=== PATIENT | female | born 1935 | race Caucasian/White ===

== ENCOUNTER 2017-02-05 12:51 | Day surgery (SDC) | payer MEDICARE, OTHER ==
[~2017-02-05 12:51] MED LIST: 0.9 % SODIUM CHLORIDE 10 ML DISP.SYRIN. IV PRN; ASPI-630 PO; CLOP75TA PO; CLOP75TA57 PO; DIGO125T PO; FLEC100T PO; FLUT10.6 IH; FLUT1DIS IH; FURO-68 PO; GLUC1CAP48 PO; IV RINGERS,LACTATED 1000ML 1,000 ML IV SCH; METO25TA4 PO; MULT-245 PO; POTA20TA12 PO; PROAIR RESPICL90 MCG IH; RIVA20TA2 PO; SIMV5TAB5 PO; TRIA10VI TOP; TRIA15CR TP; VIT1TABL32 PO
--- NOTE | 2017-02-05 13:41 | EKG ---
[facility] [address] [place] [address] Test Date: 2017-02-05 Test Time: 13:42:48 Pat Name: EVERETT WHITING Department: Room: Gender: F [employer] Operator: ISABELL : 1935 Requested By: MIREYA FREIRE Order Number: [id number] Reading MD: Measurements Intervals [place] Rate: 92 P: CT: QRS: 51 QRSD: 106 T: 112 QT: 410 QTc: 513 Interpretive Statements IRREGULAR RHYTHM, NO P-WAVE FOUND VENTRICULAR PREMATURE COMPLEX(ES) LOW LIMB LEAD VOLTAGE ST & T ABNORMALITY, CONSIDER INFERIOR ISCHEMIA OR LEFT VENTRICULAR STRAIN ABNORMAL ECG RI6.01 Compared to ECG 03/04/2015 12:08:20 Atrial fibrillation no longer present T-wave abnormality still present Possible ischemia still present
[2017-02-05 13:57] LABS: CALCIUM 8.7 mg/dL (8.5-10.1); CREATININE 1.1 mg/dL (0.6-1.0); GFR 47.4; POTASSIUM 3.4 mmol/L (3.5-5.1)
[2017-02-05] MEDS ORDERED: PROPOFOL 20 ML IV ONE (14:22)
[2017-02-05] MEDS ORDERED: LIDOCAINE 2% PF Vial for OR 5 ML VIAL. ONE (14:22)
[2017-02-05] MEDS ORDERED: ePHEDrine PF IN SALINE 50 MG/5 ML DISP.SYRIN IV ONE (14:23)
--- NOTE | 2017-02-05 15:03 | EKG ---
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
[2017-02-05 16:20] VITALS: BP 114/47
--- NOTE | 2017-02-05 21:13 | CCR ---
DATE OF SERVICE: 02/05/2017 PROCEDURE DONE: Cardioversion. PERFORMING PHYSICIAN: Mireya Bean M.D. INDICATIONS: Atrial fibrillation. COMPLICATIONS: None. DESCRIPTION OF PROCEDURE: An informed consent was obtained from the patient. Anesthesiology team administered intravenous propofol for general anesthesia. The patient was then administered 200 joules of synchronized biphasic DC current with successful conversion of the patient's rhythm to sinus rhythm. The patient was hemodynamically stable without any neurological deficits at the end of procedure. The patient tolerated the procedure well. CONCLUSIONS: Successful cardioversion of atrial fibrillation to sinus rhythm. MIREYA BEAN MD DR: NATHANIEL/josie JOB#: [id number] / [id number]
== END 2017-02-05 16:50 | disposition home or self-care (01) ==
LOC: SURG 12:51
PROVIDERS: ATTEND Internal Medicine Cardiovascular Disease
DX: I48.91 Unspecified atrial fibrillation (principal); E78.00 Pure hypercholesterolemia, unspecified; I25.10 Atherosclerotic heart disease of native coronary artery without angina pectoris; I10 Essential (primary) hypertension; J44.9 Chronic obstructive pulmonary disease, unspecified; E66.9 Obesity, unspecified; M19.90 Unspecified osteoarthritis, unspecified site; I73.9 Peripheral vascular disease, unspecified; Z98.41 Cataract extraction status, right eye; Z98.42 Cataract extraction status, left eye; Z68.45 Body mass index [BMI] 70 or greater, adult; Z90.710 Acquired absence of both cervix and uterus; Z87.39 Personal history of other diseases of the musculoskeletal system and connective tissue; Z88.2 Allergy status to sulfonamides
CPT/HCPCS: 36415; 80048; 83735; 92960; 93005; J2704

== ENCOUNTER → 2017-03-15 | Outpatient (CLI) | payer OTHER ==
[~2017-03-15] MED LIST changes: -0.9 % SODIUM CHLORIDE 10 ML DISP.SYRIN. IV PRN; -IV RINGERS,LACTATED 1000ML 1,000 ML IV SCH
--- NOTE | 2017-03-15 13:27 | RAD ---
APPROVED REPORT Patient Location : OUT-PATIENT Indications Lower Extremity Edema : Bilateral Findings The right great saphenous vein measures 7.6 mm. The right lesser saphenous vein measures 3.8 mm. Ther e is no evidence of thrombus on limited grayscale images with normal color Doppler and spectral wavef orms demonstrating no evidence of reflux. The left great saphenous vein measures 7.1 mm. The left lesser saphenous vein was not well visualize d. There is no evidence of thrombus on limited grayscale images with normal color Doppler and spectra l waveforms demonstrating no evidence of reflux. Critical Notification Critical Value: No <Conclusion> 1. Negative for reflux in the bilateral greater and right lesser saphenous vein.
== END | disposition home or self-care (01) ==
LOC: US 08:25
PROVIDERS: ATTEND Internal Medicine Cardiovascular Disease
DX: R60.0 Localized edema (principal)
CPT/HCPCS: 93970

== ENCOUNTER → 2017-09-08 | Outpatient (CLI) | payer OTHER ==
[2017-09-08] MEDS: REGADENOSON 0.4 MG/5 ML DISP.SYRIN. IV (11:04)
== END | disposition home or self-care (01) ==
LOC: NM 08:21
DX: I50.33 Acute on chronic diastolic (congestive) heart failure (principal); I48.91 Unspecified atrial fibrillation
CPT/HCPCS: 78452; 93017; 96374; 96375; 96376; A9500; J2785

== ENCOUNTER 2017-09-13 08:49 | Day surgery (SDC) | payer OTHER ==
[~2017-09-13 08:49] MED LIST changes: -ASPI-630 PO; -CLOP75TA PO; -CLOP75TA57 PO; -DIGO125T PO; -FLEC100T PO; -FLUT10.6 IH; -FLUT1DIS IH; -FURO-68 PO; -GLUC1CAP48 PO; +HYDROmorphone 2 MG/ML VIAL IV; +LIDOCAINE 1% PF 2 ML VIAL. ID; -METO25TA4 PO; +MORPHINE SULFATE 2 MG/ML DISP.SYRIN. IV; -MULT-245 PO; -POTA20TA12 PO; -PROAIR RESPICL90 MCG IH; +PROCHLORPERAZINE 10 MG/2 ML VIAL. IV; -RIVA20TA2 PO; -SIMV5TAB5 PO; -TRIA10VI TOP; -TRIA15CR TP; -VIT1TABL32 PO; +fentaNYL PF VIAL 100 MCG/2 ML VIAL IV
[2017-09-13] MEDS ORDERED: 0.9 % SODIUM CHLORIDE 10 ML DISP.SYRIN. IV (09:45)
[2017-09-13] MEDS: IV RINGERS,LACTATED 1000ML 1,000 ML IV (09:55)
[2017-09-13 10:00] LABS: HEMOGLOBIN 11.5 g/dL (12.0-15.5); MEAN CORPUSCULAR HEMOGLOBIN 30 pg (25-35); MEAN CORPUSCULAR HGB CONC 31 g/dL (31-37); MEAN CORPUSCULAR VOLUME 95 fL (79-100); PLATELET COUNT 277 x10^3/uL (140-400); RED CELL DISTRIBUTION WIDTH 15.6 % (11.5-14.5)
[2017-09-13 10:07] LABS: ANION GAP 7 (6-14); BLOOD UREA NITROGEN 13 mg/dL (7-20); CALCIUM 8.9 mg/dL (8.5-10.1); CARBON DIOXIDE 26 mmol/L (21-32); CHLORIDE 103 mmol/L (98-107); CREATININE 1.1 mg/dL (0.6-1.0); GFR 47.4; GLUCOSE 96 mg/dL (70-99); MAGNESIUM 1.9 mg/dL (1.8-2.4); POTASSIUM 3.9 mmol/L (3.5-5.1); SODIUM 136 mmol/L (136-145)
[2017-09-13] MEDS ORDERED: PROPOFOL 0 ML IV (10:22)
[2017-09-13] MEDS ORDERED: PROPOFOL 20 ML IV (10:22)
== END 2017-09-13 11:56 | disposition home or self-care (01) ==
LOC: SURG 08:49
DX: I48.91 Unspecified atrial fibrillation (principal); Z88.1 Allergy status to other antibiotic agents; Z88.2 Allergy status to sulfonamides; I25.10 Atherosclerotic heart disease of native coronary artery without angina pectoris; I50.9 Heart failure, unspecified; E78.00 Pure hypercholesterolemia, unspecified; J44.9 Chronic obstructive pulmonary disease, unspecified; G47.30 Sleep apnea, unspecified; E66.9 Obesity, unspecified; K21.9 Gastro-esophageal reflux disease without esophagitis; Z90.710 Acquired absence of both cervix and uterus; Z90.721 Acquired absence of ovaries, unilateral; M19.90 Unspecified osteoarthritis, unspecified site; Z87.891 Personal history of nicotine dependence; C44.90 Unspecified malignant neoplasm of skin, unspecified
CPT/HCPCS: 36415; 80048; 83735; 85027; 92960; 93005; J2704

== ENCOUNTER → 2019-05-29 | Outpatient (CLI) | payer OTHER ==
[2019-05-29] VITALS (11 sets, daily range): BP systolic 87–104; BP diastolic 51–63
[~2019-05-29] VITALS: Ht 172.7 cm; Wt 81.6 kg
[~2019-05-29] MED LIST changes: +ALBU2.5V14 NEB; +AMIO200T4 PO; +ASPI-630 PO; +CLOP75TA PO; +CLOP75TA57 PO; +DIGO125T PO; +DILT120C71 PO; +FLEC100T PO; +FLUT10.6 IH; +FLUT1DIS IH; +FURO-68 PO; +GLUC1CAP48 PO; +GUAI600T47 PO; -HYDROmorphone 2 MG/ML VIAL IV; +IODIXANOL 320 MG/ML 100 ML VIAL. IART ONE; +IODIXANOL 320 MG/ML 100 ML VIAL. ONE; +IV 1/2 NORMAL SALINE 1,000 ML IV SCH; +LIDOCAINE 1% Multi-Dose 20 ML VIAL. INJ ONE; +LIDOCAINE 1% Multi-Dose 20 ML VIAL. ONE; -LIDOCAINE 1% PF 2 ML VIAL. ID; +METO25TA4 PO; +MIDAZOLAM HCL/PF 2 MG/2 ML VIAL. IV ONE; +MIDAZOLAM HCL/PF 2 MG/2 ML VIAL. ONE; -MORPHINE SULFATE 2 MG/ML DISP.SYRIN. IV; +MULT-245 PO; +MULT-658 PO; +NITROGLYCERIN SUBLINGUAL 0.4 MG BOTTLE OF 25. SL PRN; +POTA20TA12 PO; +PROAIR RESPICL90 MCG IH; -PROCHLORPERAZINE 10 MG/2 ML VIAL. IV; +RIVA20TA2 PO; +SIMV5TAB14 PO; +TRIA10VI TOP; +TRIA15CR TP; +UMEC62.5 IH; +VIT1TABL32 PO; -fentaNYL PF VIAL 100 MCG/2 ML VIAL IV; +fentaNYL PF VIAL 100 MCG/2 ML VIAL IV ONE; +fentaNYL PF VIAL 100 MCG/2 ML VIAL ONE
[2019-05-29 09:15] LABS: CALCIUM 9.3 mg/dL (8.5-10.1); CREATININE 1.1 mg/dL (0.6-1.0); GFR 47.2; POTASSIUM 3.2 mmol/L (3.5-5.1)
[2019-05-29 09:20] LABS: HEMATOCRIT 38.3 % (36.0-47.0); HEMOGLOBIN 13.2 g/dL (12.0-15.5); RED BLOOD COUNT 3.98 x10^6/uL (3.50-5.40); RED CELL DISTRIBUTION WIDTH 13.2 % (11.5-14.5); WHITE BLOOD COUNT 15.7 x10^3/uL (4.0-11.0)
[2019-05-29 09:32] LABS: PROTHROMBIN TIME PATIENT 15.7 SEC (11.7-14.0)
--- NOTE | 2019-05-29 10:41 | PDOC ---
MODERATE SEDATION ASSESSMENT RISKS/ALTERNATIVES Risks/Alternatives Risks and alternatives of this type of sedation and procedure discussed with: RISK/ALTERNATIVES: Patient H & P ON CHART H & P H & P on chart and reviewed for co-morbid conditions and appropriate labs. H&P ON CHART: Yes STATUS PREG STATUS ASSESSED: N/A MEDS/ALLERGIES REVIEWED Meds/Allergies Reviewed Medications and Allergies including time and route of recently administered narcotics and sedatives. MEDS/ALLERGIES REVIEWED: Yes ASA RATING ASA RATING: III AIRWAY ASSESSMENT Airway Assessment Airway patency, oral function limitations, presence of caps, crowns, dentures, partials, and ability to extend neck assessed. AIRWAY ASSESSMENT: Yes MALLAMPATI SCORE MALLAMPATI SCORE: II PRE-SEDATION ASSESSMENT PRE-SEDATION ASSESSMENT: Yes MIREYA FREIRE MD May 29, 2019 10:41
--- NOTE | 2019-05-29 11:25 | CARD ---
MR#: [id number] Date of Study: 05/29/2019 Ordering Physician: MIREYA BEAN, Referring Physician: MIREYA BEAN Tech: RT Dali (R) APPROVED REPORT Technologist: RT Dali (R) Nurse: Slime Lynne RN Procedure(s) performed: Right and left heart catheterization, selective coronary angiography and left ventriculography Fluoro time: 12.5min Dose:37Tzco2 Contrast: 137cc Moderate sedation:45 minutes INDICATION The indication(s) include : Refractory dyspnea on exertion. [facility] Clinical Frailty Scale [facility] Clinical Frailty Scale: Mildly Frail Heart Failure Heart Failure: No PROCEDURE NARRATIVE After explaining the risks, benefits and alternative options, informed consent was obtained from ruben ent. Patient was brought to the cardiac Necktie Maker and her right groin was prepped and draped in the us ual fashion. 20 mL of 2% lidocaine was infiltrated into the skin and subcutaneous tissues for local a nesthesia. Arterial and venous accesses were obtained in the right common femoral artery and vein res pectively and 6 and 8 Guatemalan sheaths inserted. A 7.5 [place] Durham-Alis catheter was then advanced unde r fluoroscopy guidance and intracardiac pressures, oxygen saturations and cardiac output by thermodil ution method were measured. Subsequently, 6 [place] JL4 and 6 [place] JR4 catheters were used to perfor m selective angiography of the left and right coronary arteries. Finally, 6 [place] pigtail catheter w as used to perform left ventriculography. Patient tolerated the procedure well. Hemostasis was achiev ed using Angio-Seal and manual compression. There were no immediate complications. The following find ings were noted. FINDINGS A. RIGHT HEART CATHETERIZATION 1. Intracardiac pressures: Mean right atrial pressure 9 mmHg, right ventricular pressure 35/4 mmHg, pulmonary artery pressure 46/2 mmHg with mean PA pressure 22 mmHg and mean pulmonary capillary wedge pressure 12 mmHg. No significant pulmonary hypertension. 2. Oxygen saturations: Right atrium 68.2%, pulmonary artery 66.8%, femoral arterial sheath 94.5%. No evidence of intracardiac shunt. 3. Cardiac output by thermodilution method 4.8 L/m. B. LEFT HEART CATHETERIZATION 1. Hemodynamics: Left ventricular end-diastolic pressure 16 mmHg. No pullback gradient across the a ortic valve. 2. Left ventriculography: Mild left ventricle systolic dysfunction with ejection fraction estimated at 40-45%. No significant mitral regurgitation seen. 3. Coronary angiography: a. The left main coronary artery arose from the left sinus of Valsalva, gave rise to the left anteri or descending and left circumflex arteries and did not show any significant stenosis. b. The left anterior descending artery showed 30% stenosis in a tortuous midsegment. No critical les ions were noted. c. The left circumflex artery showed minimal luminal irregularities without any significant stenosis . d. The right coronary artery was a large and dominant vessel arising from the right sinus of Valsalva that did not show any significant stenosis. Conclusion 1. No significant coronary artery disease 2. Mild left ventricle systolic dysfunction with ejection fraction estimated at 40-45% 3. No significant pulmonary hypertension 4. No evidence of intracardial shunt Recommendations Medical Therapy Signed by : Mireya Bean, Electronically Approved : 05/29/2019 10:59:12
--- NOTE | 2019-05-29 15:26 | NUR ---
pt A&O x 3 but is forgetful. denies pain, nausea or dizziness. ambulated to BR w/ SBA w/o problem. tolerating po well. vss. rt groin site clean D&I. no bleeding or swelling noted. d/c instructions given to pt and her dtr. questions answered. out to vehicle per w/c- her dtr to drive her home
== END ==
LOC: CCL 08:35
PROVIDERS: ATTEND Internal Medicine Cardiovascular Disease
DX: I25.10 Atherosclerotic heart disease of native coronary artery without angina pectoris (principal); I50.32 Chronic diastolic (congestive) heart failure
CPT/HCPCS: 36415; 80048; 85027; 85610; 93460; 99152; 99153; C1760; C1769; C1773; C1892; J1644; J2250; J3010; Q9967; G0269; C1771

== ENCOUNTER → 2020-09-02 | Outpatient (CLI) | payer MEDICARE ==
[2019-05-29 14:00] VITALS: BP 98/55
[~2020-09-02] MED LIST changes: -AMIO200T4 PO; +AMIO200T6 PO; -DIGO125T PO; +DIGO125T3 PO; -IODIXANOL 320 MG/ML 100 ML VIAL. IART ONE; -IODIXANOL 320 MG/ML 100 ML VIAL. ONE; -IV 1/2 NORMAL SALINE 1,000 ML IV SCH; -LIDOCAINE 1% Multi-Dose 20 ML VIAL. INJ ONE; -LIDOCAINE 1% Multi-Dose 20 ML VIAL. ONE; -MIDAZOLAM HCL/PF 2 MG/2 ML VIAL. IV ONE; -MIDAZOLAM HCL/PF 2 MG/2 ML VIAL. ONE; -NITROGLYCERIN SUBLINGUAL 0.4 MG BOTTLE OF 25. SL PRN; -fentaNYL PF VIAL 100 MCG/2 ML VIAL IV ONE; -fentaNYL PF VIAL 100 MCG/2 ML VIAL ONE
--- NOTE | 2020-09-02 15:12 | CARD ---
MR#: [id number] Date of Study: 09/02/2020 Ordering Physician: MIREYA FREIRE, Referring Physician: MIREYA FREIRE, Tech: [place] Terry [facility] APPROVED REPORT EXAM: Two-dimensional and M-mode echocardiogram with Doppler and color Doppler. Other Information Quality : AverageHR: 67bpm Rhythm : Atrial Fibrillation INDICATION Arrhythmia Dyspnea Atrial Fibrillation RISK FACTORS Hypertension Smoking 2D DIMENSIONS RVDd4.2 (2.9-3.5cm)Left Atrium(2D)5.0 (1.6-4.0cm) IVSd1.2 (0.7-1.1cm)Aortic Root(2D)3.4 (2.0-3.7cm) LVDd5.8 (3.9-5.9cm)LVOT Diameter2.1 (1.8-2.4cm) PWd1.1 (0.7-1.1cm)LVDs5.3 (2.5-4.0cm) FS (%) 9.2 %SV33.6 ml Aortic Valve AoV Peak Cristino.153.3cm/[place] Peak GR.10.2mmHg LVOT Peak Cristino.89.9cm/sAVA (VMAX)2.11cm2 Mitral Valve MV E Pforywzu437.4cm/sMV DECEL SCYA418ch MV A Dgpmbqvb97.8cm/sE/A Ratio3.3 Tricuspid Valve TR P. Oyjbwjhb699kl/sTR Peak Gr.39mmHg LEFT VENTRICLE The Left Ventricle is mildly dilated. There is borderline to mild concentric left ventricular hypertr ophy. The left ventricular systolic function is normal. The ejection fraction is estimated at 55-60%. There is normal LV segmental wall motion. Tissue Doppler imaging reveals moderate left ventricular d iastolic dysfunction. RIGHT VENTRICLE The right ventricle is borderline dilated. There is normal right ventricular wall thickness. The righ t ventricular systolic function is normal. ATRIA The left atrium is severely dilated. The right atrium is severely dilated. AORTIC VALVE The aortic valve is normal in structure and function. Doppler and Color Flow revealed mild aortic reg urgitation. There is no significant aortic valvular stenosis. MITRAL VALVE The mitral valve is thickened but opens well. There is no evidence of mitral valve prolapse. There is no mitral valve stenosis. Doppler and Color-flow revealed mild to moderate mitral regurgitation. TRICUSPID VALVE The tricuspid valve is normal in structure and function. Doppler and Color Flow revealed moderate tri cuspid regurgitation. Estimated PAP 49 mmHg. There is no tricuspid valve stenosis. PULMONIC VALVE The pulmonary valve is normal in structure and function. Doppler and Color Flow revealed trace to mil d pulmonic valvular regurgitation. GREAT VESSELS The aortic root is normal in size. The ascending aorta is normal in size. The IVC is normal in size a nd collapses >50% with inspiration. PERICARDIAL EFFUSION There is no evidence of significant pericardial effusion. Critical Notification Critical Value: No <Conclusion> The left ventricular systolic function is normal. The ejection fraction is estimated at 55-60%. There is normal LV segmental wall motion. Tissue Doppler imaging reveals moderate left ventricular diastolic dysfunction. Severe biatrial enlargement. Mild aortic regurgitation. Mild to moderate mitral regurgitation. Moderate tricuspid regurgitation. Estimated PAP 49 mmHg. There is no evidence of significant pericardial effusion. Signed by : Mireya Freire, Electronically Approved : 09/02/2020 15:11:55
== END ==
LOC: ECHO 09:33
PROVIDERS: ATTEND Internal Medicine Cardiovascular Disease
DX: I08.8 Other rheumatic multiple valve diseases (principal); I48.0 Paroxysmal atrial fibrillation
CPT/HCPCS: 93306